=== PATIENT | female | born 1945 | race Caucasian/White ===

== ENCOUNTER 2020-09-16 05:08 | Observation (INO) | payer MEDICARE ==
[2020-09-16] MEDS ORDERED: Ondansetron PF 4 MG/2 ML Vial ONE ×2 (05:30→11:46)
[2020-09-16] MEDS ORDERED: Morphine 4 MG/ML VIAL ONE (05:30)
[2020-09-16] MEDS ORDERED: Dexamethasone 10 MG/ML VIAL ONE (05:30)
[2020-09-16 05:51] LABS: #Basophils 0.1 thou/uL (0.0-0.2); #Lymphocytes 2.4 thou/uL (1.20-3.40); #Monocytes 1.4 thou/uL (0.11-0.59); %Basophils 0.7 % (0.0-1.0); %Eosinophils 0.3 % (0.0-10.0); %Monocytes 12.8 % (0.0-10.0); %Neutrophils 64.2 % (42.0-75.0); Hemoglobin 14.5 g/dL (12.0-16.0); Mean Platelet Volume 7.1 fL (7.4-10.4); Platelet Count 347 thou/uL (130-400); RBC Distribution Width 12.5 % (11.5-14.5); Red Blood Cell (RBC) Count 4.52 mill/uL (4.20-5.40); White Blood Cell (WBC) Count 10.9 thou/uL (4.8-10.8)
[2020-09-16] MEDS ORDERED: Ampicillin/Sulbactam 3 GM in Sodium Chloride 0.9% 100 ML IVPB SCH (07:00)
[2020-09-16] MEDS ORDERED: Ondansetron PF 4 MG/2 ML Vial IVP PRN (08:02)
[2020-09-16] MEDS ORDERED: Acetaminophen 650 MG Suppository PR PRN (08:02)
[2020-09-16] MEDS ORDERED: Ondansetron ODT 4 MG TAB PO PRN (08:02)
[2020-09-16] MEDS ORDERED: Acetaminophen 325 MG TAB PO PRN (08:02)
[2020-09-16] MEDS ORDERED: Morphine 4 MG/ML VIAL SLOW IVP PRN (08:15)
[2020-09-16 09:13] VITALS: BMI 26.8
[2020-09-16] MEDS ORDERED: EPINEPHrine 1 MG/ML AMP ONE (11:24)
[2020-09-16] MEDS ORDERED: Bupivacaine 0.25% HCL 30 ML VIAL ONE (11:24)
[2020-09-16] MEDS ORDERED: Lidocaine 1% w/Epinephrine 1:100K 20 ML VIAL ONE (11:24)
[2020-09-16] MEDS ORDERED: Chlorhexidine Gluconate 15 ML UDCUP SSP ONE (11:24)
[2020-09-16] MEDS ORDERED: Fentanyl 100 MCG/2 ML VIAL ONE (11:27)
[2020-09-16] MEDS ORDERED: Lidocaine 2% Jelly 5 ML TUBE ONE (11:30)
[2020-09-16] MEDS ORDERED: AFRIN NASAL MIST 15 ML BOT ONE (11:30)
[2020-09-16 11:32] LABS: SARS-CoV-2 NAA Rapid Test Not Detected (NotDetected)
[2020-09-16] MEDS ORDERED: PROPOFOL 200 MG/20 ML VIAL ONE (11:46)
[2020-09-16] MEDS ORDERED: Rocuronium Bromide 10 MG/ML (10ML VIAL) ONE (11:46)
[2020-09-16] MEDS ORDERED: Lidocaine 1% PF 5 ML VIAL ONE (11:46)
[2020-09-16] MEDS ORDERED: Dexamethasone 20 MG/5 ML VIAL ONE (11:46)
[2020-09-16] MEDS ORDERED: Glycopyrrolate 0.2 MG/ML 5 ML SYRINGE ONE (11:46)
[2020-09-16] MEDS ORDERED: Iopamidol-370 76% 500 ML 1 ML ONE (11:54)
[2020-09-16] MEDS ORDERED: Promethazine HCl 25 MG/ML VIAL IM PRN (12:16)
[2020-09-16] MEDS ORDERED: Promethazine HCl 25 MG/ML VIAL SLOW IVP PRN (12:16)
[2020-09-16] MEDS ORDERED: PACU-Morphine 4MG/ML VIAL SLOW IVP PRN (12:16)
[2020-09-16] MEDS ORDERED: Ondansetron HCl/PF 4 MG/2 ML Vial IVP PRN (12:16)
[2020-09-16] MEDS ORDERED: SUGAMMADEX SODIUM 200 MG/2 ML VIAL ONE (12:25)
[2020-09-16] MEDS ORDERED: Ibuprofen 800 MG TAB PO PRN (14:28)
[2020-09-16] MEDS: Ampicillin/Sulbactam 3 GM in Sodium Chloride 0.9% 100 ML IVPB SCH ×2 (14:40→20:25)
[2020-09-16] MEDS: Chlorhexidine Gluconate 15 ML UDCUP SSP SCH (20:25)
[2020-09-17] MEDS: Ampicillin/Sulbactam 3 GM in Sodium Chloride 0.9% 100 ML IVPB SCH ×2 (03:41→08:22)
[2020-09-17 06:23] LABS: Anion Gap 11 mmol/L (10-20); BUN (Urea Nitrogen) 12 mg/dL (9.8-20.1); Calc. Creatinine Clearance 81 mL/min (70-130); Calcium 8.9 mg/dL (7.8-10.44); Carbon Dioxide 27 mmol/L (23-31); Chloride 103 mmol/L (98-107); Glucose 132 mg/dL (83-110); Potassium 3.9 mmol/L (3.5-5.1); Sodium 137 mmol/L (136-145)
[2020-09-17 07:17] LABS: Hemoglobin 13.3 g/dL (12.0-16.0); Mean Corpuscular HGB CONC 32.3 g/dL (32.0-36.0); Mean Corpuscular Hemoglobin 32.4 pg (27.0-31.0); Mean Platelet Volume 7.5 fL (7.4-10.4); Platelet Count 285 thou/uL (130-400); RBC Distribution Width 12.5 % (11.5-14.5); White Blood Cell (WBC) Count 13.4 thou/uL (4.8-10.8)
[2020-09-17 07:46] LABS: Band 3 % (5-11); Lymphocytes 10 % (21-51); MDiff Complete? YES; Monocytes 7 % (0-10); Neutrophil 80 % (42-75); Platelet Morphology Comment Appears Adequate; RBC Morphology Normal
[2020-09-17 08:01] VITALS: BP 118/74; TEMP 98
[2020-09-17] MEDS: Chlorhexidine Gluconate 15 ML UDCUP SSP SCH (08:11)
== END 2020-09-17 11:40 | disposition home or self-care (01) ==
LOC: ERS 05:08 → SURG B 07:19
PROVIDERS: ADMIT Internal Medicine; ATTEND Internal Medicine
PROC: 0CDXXZ1 Extraction of Lower Tooth, Multiple, External Approach (ICD-10-PCS; principal; 2020-09-16)
PROC: 0J910ZZ Drainage of Face Subcutaneous Tissue and Fascia, Open Approach (ICD-10-PCS; 2020-09-16)
DX: K12.2 Cellulitis and abscess of mouth (principal); K04.7 Periapical abscess without sinus; K02.9 Dental caries, unspecified; L03.211 Cellulitis of face; L03.221 Cellulitis of neck; M60.08 Infective myositis, other site; I10 Essential (primary) hypertension; F17.210 Nicotine dependence, cigarettes, uncomplicated; R25.2 Cramp and spasm; Z79.899 Other long term (current) drug therapy; Z20.822 Contact with and (suspected) exposure to COVID-19
CPT/HCPCS: 41008; 41899; 70491; 80048; 85025 ×2; 87070; 87075; 87205; 96365; 96366 ×2; 96375; 96376 ×2; 99285; G0378 ×3; U0002; 36415; J0171; J0295; J1100; J2270; J2405; J2704; J3010; J3490; Q0162; Q9967; S0020